=== PATIENT | female | born 1970 | race African-American/Black ===

== ENCOUNTER 2021-01-23 05:16 | Emergency (ER) | payer OTHER ==
[~2021-01-23] VITALS: Ht 152.4 cm; Wt 68.0 kg
[2021-01-23 05:57] LABS: ABSOLUTE NEUTROPHILS 4.4 thou/uL (1.4-8.2); BASOPHILS 0.9 % (0.0-2.0); EOSINOPHILS 4.9 % (0.0-3.0); HEMATOCRIT 36.3 % (37.0-47.0); HEMOGLOBIN 12.2 gm/dL (12.0-15.0); LYMPHOCYTES 23.8 % (24.0-44.0); MCH 29.5 pg (26.0-34.0); MCHC 33.6 g/dL (28.0-37.0); MCV 87.7 fL (80.0-100.0); MONOCYTES 7.4 % (1.0-8.0); PLATELET COUNT 306 thou/uL (150-400); RBC 4.13 mil/uL (4.20-5.00)
[2021-01-23 06:07] LABS: CALCIUM 9.4 mg/dL (8.5-10.1); POTASSIUM 4.4 mmol/L (3.5-5.1)
[2021-01-23 06:10] LABS: URINE BILIRUBIN NEGATIVE (Negative); URINE BLOOD 1+ (Negative); URINE CLARITY CLEAR; URINE COLOR YELLOW; URINE GLUCOSE-RANDOM* NEGATIVE (Negative); URINE KETONES NEGATIVE (Negative); URINE LEUKOCYTES-REFLEX NEGATIVE (Negative); URINE NITRITE-REFLEX NEGATIVE (Negative); URINE PROTEIN (DIPSTICK) NEGATIVE (Negative); URINE UROBILINOGEN 0.2 E.U./dl (0.2-1.0)
[2021-01-23] MEDS ORDERED: ATORVASTATIN CA10 MG PO (06:30)
[2021-01-23] MEDS ORDERED: HYDROCODON-ACE1 EAC7 PO (06:30)
[2021-01-23] MEDS ORDERED: VITAMIN D21250 MCG PO (06:31)
[2021-01-23] MEDS ORDERED: STIMULANT LAXA1 EACH PO (06:31)
[2021-01-23] MEDS ORDERED: IBUPROFEN 600600 M1 PO (06:31)
[2021-01-23] MEDS ORDERED: CYCLOBENZAPRINE5 MG PO (06:31)
[2021-01-23 06:35] LABS: SQUAMOUS 4-10 Moderate /LPF (0-3)
[2021-01-23 06:36] LABS: CASTS None Seen /LPF (None Seen)
[2021-01-23 06:37] LABS: CRYSTALS None Seen /LPF (None Seen); URINE RBC 1-2 Rare /HPF (NONE SEEN); URINE WBC-REFLEX 0-5 Rare /HPF (0-5)
[2021-01-23] MEDS ORDERED: NORCO5 PO (07:21)
[2021-01-23 07:45] VITALS: BP 138/83
== END 2021-01-23 07:41 | disposition home or self-care (01) ==
LOC: ER 05:16
PROVIDERS: Emergency Medicine
DX: R10.31 Right lower quadrant pain (principal); E78.00 Pure hypercholesterolemia, unspecified; Z98.890 Other specified postprocedural states